=== PATIENT | female | born 1960 | race Native Hawaiian/Other Pacific Islander ===

== ENCOUNTER 2021-12-19 12:06 | Outpatient (CLI) | payer BC | END 2021-12-19 19:22 | disposition home or self-care (01) | LOC: RAD 12:06 | PROVIDERS: ATTEND Physician Assistant | DX: M54.2 Cervicalgia (principal) ==

== ENCOUNTER 2022-01-17 10:04 | Outpatient (CLI) | payer BC | END 2022-01-17 19:31 | disposition home or self-care (01) | LOC: MRI 10:04 | PROVIDERS: ATTEND Physician Assistant | DX: M54.2 Cervicalgia (principal) ==